=== PATIENT | female | born 1945 | race Two or more races ===

== ENCOUNTER 2018-07-16 02:56 | Emergency (ER) | END 2018-07-16 09:09 | disposition home or self-care (01) ==

== ENCOUNTER 2019-03-22 17:21 | Emergency (ER) | payer MEDICARE, OTHER ==
[~2019-03-22] VITALS: Ht 157.5 cm; Wt 85.0 kg
[~2019-03-22 17:21] MED LIST: ASPI-535 PO; ATOR20TA38 PO; ERGO500013 PO; FURO40TA4 PO; GABA100C14 PO; HYDR-3672 PO; HYDR25TA6 PO; IRBE300T15 PO; LORA0.5T PO; LOSA100T15 PO; MELO7.5T38 PO; METO2.5T PO; OMEP20CA16 PO; POTA8CAP PO; PROP40TA4 PO; PSEU30TA38 PO; UMEC1DIS INHALATION
[2019-03-22 17:30] VITALS: Ht 157.5 cm; Wt 85.0 kg
--- NOTE | 2019-03-22 17:36 | ERD ---
ER Documentation Chief Complaint Chief Complaint LLQ AP HPI The patient is a 74-year-old female, presenting to the ER because of left lower quadrant abdominal pain that began around 4:30 PM after voiding, complains of dysuria, denies similar symptoms previously, denies fever, chills, neck pain, chest pain, dyspnea, diarrhea, c/o constipation. She does not smoke nor drink Past medical history: Hypertension, dyslipidemia, anxiety, history of CHF Past surgical history: Hysterectomy, cholecystectomy ROS All systems reviewed and are negative except as per history of present illness. Medications Home Meds Active Scripts Polyethylene Glycol* (Miralax*) 17 Gm Powd.pack, 17 GM PO DAILY, #30 PACKET Prov:ELISEO ASTUDILLO MD 03/22/19 Reported Medications Sertraline Hcl* (Sertraline Hcl*) 25 Mg Tablet, 25 MG PO DAILY, #30 TAB 03/22/19 Metoprolol Succinate* (Toprol XL*) 50 Mg Tab.er.24h, 50 MG PO DAILY, #30 TAB 03/22/19 Lorazepam* (Lorazepam*) 0.5 Mg Tablet, 0.5 MG PO BID PRN for ANXIETY, TAB 03/22/19 Gabapentin* (Gabapentin*) 100 Mg Capsule, 100 MG PO BID, #90 CAP 03/22/19 Aspirin* (Aspirin* EC) 81 Mg Tablet.dr, 81 MG PO DAILY, TAB 03/22/19 Atorvastatin Calcium* (Atorvastatin Calcium*) 20 Mg Tablet, 20 MG PO QHS, #30 TAB 03/22/19 Meloxicam* (Mobic*) 7.5 Mg Tab, 7.5 MG PO DAILY, #30 TAB 03/22/19 Sennosides* (Senna Lax*) 8.6 Mg Tablet, 1 TAB PO DAILY, TAB 03/22/19 Umeclidinium Brm-Vilanterol Tr (Anoro Ellipta) 62.5-25 Mcg Disk.w.dev, 1 EACH INHALATION DAILY, #1 DISK 03/22/19 Gpmlbdjapg-Iswklnogny-VNQI (Tribenzor) 40-10-12.5 Mg Tablet, 1 TAB PO DAILY, TAB 03/22/19 Furosemide* (Furosemide*) 40 Mg Tablet, 40 MG PO BID, TAB 03/22/19 Discontinued Reported Medications Aspirin Ec (Aspir 81) 81 Mg Tablet.dr, 81 MG PO DAILY, #30 TAB 07/16/18 Umeclidinium Brm-Vilanterol Tr (Anoro Ellipta) 62.5-25 Mcg Disk.w.dev, 1 EACH INHALATION DAILY, #1 DISK 07/16/18 Losartan Potassium* (Losartan Potassium*) 100 Mg Tablet, 100 MG PO DAILY, TAB 07/16/18 Omeprazole* (Omeprazole*) 20 Mg Capsule.dr, 20 MG PO DAILY, #30 CAP 07/16/18 Atorvastatin Calcium* (Atorvastatin Calcium*) 20 Mg Tablet, 20 MG PO QHS, #30 TAB 07/16/18 Meloxicam* (Meloxicam*) 7.5 Mg Tablet, 7.5 MG PO DAILY, #30 TAB 07/16/18 Gabapentin* (Gabapentin*) 100 Mg Capsule, 100 MG PO BID, #90 CAP 07/16/18 Metolazone* (Metolazone*) 2.5 Mg Tablet, 2.5 MG PO DAILY, TAB 07/16/18 Hydrochlorothiazide* (Hydrochlorothiazide*) 25 Mg Tab, 25 MG PO DAILY, #30 TAB 07/16/18 Propranolol Hcl* (Propranolol Hcl*) 40 Mg Tablet, 40 MG PO QID, TAB 07/16/18 Lorazepam* (Lorazepam*) 0.5 Mg Tablet, 0.5 MG PO HS, TAB 07/16/18 Ergocalciferol (Vitamin D2) (VITAMIN D2) 50,000 Unit Capsule, 67281 UNIT PO, CAP 07/16/18 Hydralazine Hcl* (Apresoline*) 50 Mg Tab, 50 MG PO Q6, #120 TAB 07/16/18 Pseudoephedrine Hcl* (Pseudoephedrine Hcl*) 30 Mg Tablet, 30 MG PO Q6 PRN for CONGESTION, TAB 07/16/18 Potassium Chloride* (Potassium Chloride*) 8 Meq Capsule.er, 8 MEQ PO DAILY, CAP 07/16/18 Irbesartan* (Irbesartan*) 300 Mg Tablet, 300 MG PO DAILY, TAB 07/16/18 Furosemide* (Furosemide*) 40 Mg Tablet, 40 MG PO BID, TAB 07/16/18 Allergies Allergies: Coded Allergies: No Known Allergy (Unverified , 03/22/19) PMhx/Soc History of Surgery: Yes (HYSTERECTOMY ) Hx Neurological Disorder: No Hx Respiratory Disorders: No Hx Cardiac Disorders: Yes (HTN,CHF) Hx Psychiatric Problems: Yes (ANXIETY ) Hx Miscellaneous Medical Probl: No Hx Alcohol Use: No Hx Substance Use: No Hx Tobacco Use: No Physical Exam Vitals Vital Signs Date Temp Pulse Resp B/P (MAP) Pulse Ox O2 O2 Flow FiO2 Time Delivery Rate 03/22/19 70 16 144/64 98 Room Air 22:17 (90) 03/22/19 98.4 72 20 174/76 97 Room Air 21:04 (108) 03/22/19 69 20 165/75 97 Room Air 18:35 (105) 03/22/19 98.3 76 22 172/108 100 17:30 (129) Physical Exam Const: No acute distress. Head: Atraumatic. Eyes: Normal Conjunctiva. ENT: Normal External Ears, Nose and Mouth. Neck: Full range of motion. No meningismus. Resp: Clear to auscultation bilaterally. Cardio: Regular rate and rhythm. Abd: Soft, non distended, normal bowel sounds, minimal left lower quadrant tenderness, no rigidity/rebound/CVA tenderness Skin: No petechiae or rashes. Back: No midline or flank tenderness. Ext: No cyanosis, or edema. Neur: Awake and alert. No focal deficit Psych: Normal Mood and Affect. Result Diagram: 03/22/19174803/22/191748 Results 24 hrs Laboratory Tests Test 03/22/19 17:49 03/22/19 17:54 White Blood Count 8.1 10^3/ul Red Blood Count 3.82 10^6/ul Hemoglobin 12.1 g/dl Hematocrit 37.0 % Mean Corpuscular Volume 96.9 fl Mean Corpuscular Hemoglobin 31.7 pg Mean Corpuscular Hemoglobin Concent 32.7 g/dl Red Cell Distribution Width 13.5 % Platelet Count 234 10^3/UL Mean Platelet Volume 11.0 fl Immature Granulocytes % 0.100 % Neutrophils % 50.8 % Lymphocytes % 38.1 % Monocytes % 10.0 % Eosinophils % 0.6 % Basophils % 0.4 % Nucleated Red Blood Cells % 0.0 /100WBC Immature Granulocytes # 0.010 10^3/ul Neutrophils # 4.1 10^3/ul Lymphocytes # 3.1 10^3/ul Monocytes # 0.8 10^3/ul Eosinophils # 0.1 10^3/ul Basophils # 0.0 10^3/ul Nucleated Red Blood Cells # 0.0 10^3/ul Sodium Level 140 mmol/L Potassium Level 4.1 mmol/L Chloride Level 105 mmol/L Carbon Dioxide Level 26 mmol/L Anion Gap 9 Blood Urea Nitrogen 18 mg/dl Creatinine 0.75 mg/dl Est Glomerular Filtrat Rate mL/min mL/min Glucose Level 93 mg/dl Calcium Level 9.3 mg/dl Total Bilirubin 0.5 mg/dl Direct Bilirubin 0.00 mg/dl Indirect Bilirubin 0.5 mg/dl Aspartate Amino Transf (AST/SGOT) 23 IU/L Alanine Aminotransferase (ALT/SGPT) 21 IU/L Alkaline Phosphatase 71 IU/L Total Protein 7.4 g/dl Albumin 4.2 g/dl Globulin 3.20 g/dl Albumin/Globulin Ratio 1.31 Lipase 58 U/L Bedside Urine pH (LAB) 7.0 Bedside Urine Protein (LAB) Negative Bedside Urine Glucose (UA) Negative Bedside Urine Ketones (LAB) Negative Bedside Urine Blood Negative Bedside Urine Nitrite (LAB) Negative Bedside Urine Leukocyte Esterase (L Negative Current Medications Medications Dose Sig/Breanne Start Time Status Last (Trade) Ordered Route PRN Stop Time Admin Dose Reason Admin Ketorolac 15 mg ONCE STAT 03/22/19 DC 03/22/19 Tromethamine IV 17:42 03/22/19 18:13 (Toradol) 17:43 Morphine 2 mg ONCE STAT 03/22/19 DC 03/22/19 Sulfate IV 19:32 03/22/19 19:52 (morphine) 19:39 Ondansetron 4 mg ONCE STAT 03/22/19 DC 03/22/19 HCl (Zofran IV 19:32 03/22/19 19:51 Inj) 19:39 Procedures/[place] [address] Radiology Main Line: [phone] DIAGNOSTIC IMAGING REPORT Patient: FILIPE SMITH : 1945 Age: 74 Sex: F MR #: [id number] DOS: 03/22/19 1742 Ordering MD: ELISEO ASTUDILLO MD Location: E/R Room/Bed: PROCEDURE: CT Abdomen and Pelvis without contrast. CLINICAL INDICATION: Abdominal pain. TECHNIQUE: Unenhanced CT scan of the abdomen and pelvis was performed on a multi-detector high-resolution CT scanner. Coronal and sagittal reformatted images were obtained from the axial source images. Images were reviewed on a high-resolution PACS workstation. The total exam CTDI equals 18.9 mGy and the total exam DLP equals 1048.3 mGy-cm. DICOM images are available. One or more of the following dose reduction techniques were utilized: 1.) Automated exposure control 2.) Adjustment of the mA +/- kV according to patient's size 3.) Use of iterative reconstruction technique. COMPARISON: CTA chest 11/13/2018. FINDINGS: Evaluation of the soft tissues and viscera is limited in the absence of contrast. Partially visualized mild bibasilar pulmonary subsegmental atelectasis. Stable mild cardiomegaly without identifiable significant pericardial effusion. Mild systemic atherosclerotic calcifications without abdominal aortoiliac aneurysmal dilatation. No pathologic lymphadenopathy identified by imaging criteria. Liver demonstrates normal size and contour, without identifiable focal mass lesion in the absence of intravenous contrast. Redemonstrated chronic post cholecystectomy changes with expected mild prominence of the biliary ductal system, common bile duct measuring up to 8 mm (axial image 56, coronal image 42). Fatty pancreatic atrophy asymmetrically involves the head and uncinate process, without identifiable peripancreatic inflammatory change. Spleen is nor mal in size, with a 12 mm hilar splenule. Adrenal glands appear normal. Small sliding hiatal hernia involving the gastric cardia. Bowel is unobstructed without free air or free fluid. Subtle mistiness of the mesenteries in the left abdomen, in the presence of scattered slightly prominent lymph nodes, possibly reflecting mesenteric lymphadenitis or reactive changes related to enteritis (axial image 66, coronal image 31, sagittal image 84). There is some feculent material in the left lower quadrant distal small bowel which may reflect poor peristalsis (axial image 113). Appendix appears normal. Numerous diffusely scattered colonic diverticuli without evidence of acute diverticulitis. Unenhanced kidneys demonstrate simple - appearing cysts measuring up to 4.0 cm in the right upper pole (axial image 69, coronal image 68), 2.0 cm in the right lower pole (axial image 77, coronal image 44), and 1.5 cm in the left upper pole (axial image 48, coronal image 55). The right kidney is slightly ptotic. No nephrolithiasis nor hydronephrosis. The ureters run unobstructed to a nearly empty urinary bladder which is not well evaluated on today's exam. The patient is status post hysterectomy with postsurgical changes of the vaginal cuff. Bilateral ovaries are normal in size, demonstrating small scattered calcifications. Osseous structures are intact with diffuse bony demineralization, mild S-shaped thoracolumbar scoliosis, mild chronic 5 mm right lateral listhesis of L3 on L4 and left lateral listhesis of L4 on L5, mature bony fusion through the L5 - S1 end plates, chronic T11, L2 and L3 superior end plate Schmorl's nodes, and multilevel spondylotic changes which appear most pronounced at L4-5 where there is vacuum disc effect and bulging contributing to probable mild canal and bilat eral neural foraminal stenosis, suboptimally evaluated by CT. Tiny fatty ventral abdominal hernia in the parasagittal left lower quadrant (axial image 133, coronal image 25, sagittal image 74). Tiny fatty umbilical and infraumbilical osmar-incisional hernias (axial image 104, coronal image 15, sagittal image 60). Calcified injection granulomata in the bilateral buttocks. IMPRESSION: 1. Subtle mistiness of the mesenteries in the left abdomen, in the presence of scattered slightly prominent lymph nodes, possibly reflecting mesenteric lymphadenitis or reactive changes related to enteritis, with feculent material in the left lower quadrant distal small bowel which may reflect poor peristalsis . 2. Severe diffuse colonic diverticulosis without evidence of acute diverticulitis. The bowel is unobstructed without evidence of perforation or abscess, and the appendix appears normal. 3. Small sliding hiatal hernia. 4. No nephrolithiasis nor hydronephrosis. Simple - appearing bilateral renal cys ts. 5. Stable mild cardiomegaly. 6. Atherosclerosis. 7. Mild thoracolumbar scoliosis with mild chronic L3-4 and L4-5 degenerative listheses. Multilevel spondylotic changes appear most pronounced at L4-5 where there is probable mild canal and bilateral neural foraminal stenosis. This can be better evaluated by MRI L-spine if clinically warranted. RPTAT: HSAN Karl Castrejon, Physician Date Time Electronically viewed and signed by Karl Castrejon Physician on 03/22/2019 18:47 xN/ CC: ELISEO ASTUDILLO MD [phone] MEDICAL MAKING DECISION: The patient is a 74-year-old female, presenting with acute abdominal pain of unclear etiology, was treated with Toradol 15 mg IV, morphine 2 mg IV for pain and Zofran 4 mg IV for nausea with good response. On multiple reevaluation, she felt well, repeat abdominal exams were unremarkable, is stable for outpatient follow-up The differential diagnoses considered include but are not limited to choledocholithiasis, cholangitis, pancreatitis, hepatitis, gastritis, peptic ulcer disease, gastric ulcer, appendicitis, cystitis, diverticulitis, partial small bowel obstruction. Departure Diagnosis: Primary Impression: Abdominal pain Additional Impression: Constipation Condition: Good Comments She was discharged with MiraLAX I discussed the findings with the patient. I advised the patient to follow-up with the primary physician in the morning and return if any concern. Disclaimer: Inadvertent spelling and grammatical errors are likely due to EHR/dictation software use and do not reflect on the overall quality of patient care. Also, please note that the electronic time recorded on this note does not necessarily reflect the actual time of the patient encounter. ELISEO ASTUDILLO MD Mar 22, 2019 17:36
[2019-03-22] MEDS ORDERED: KETOROLAC 15 MG INJ IV STA (17:42)
[2019-03-22] MEDS ORDERED: UMEC1DIS INHALATION (17:45)
[2019-03-22] MEDS ORDERED: OLME1TAB35 PO (17:45)
[2019-03-22] MEDS ORDERED: FURO40TA4 PO (17:45)
[2019-03-22] MEDS ORDERED: MELO-174 PO (17:46)
[2019-03-22] MEDS ORDERED: ATOR20TA38 PO (17:46)
[2019-03-22] MEDS ORDERED: SENN-120 PO (17:46)
[2019-03-22] MEDS ORDERED: GABA100C14 PO (17:47)
[2019-03-22] MEDS ORDERED: ASPI-817 PO (17:47)
[2019-03-22] MEDS ORDERED: LORA0.5T PO (17:47)
[2019-03-22] MEDS ORDERED: METO-319 PO (17:48)
[2019-03-22] MEDS ORDERED: SERT25TA83 PO (17:48)
[2019-03-22] MEDS ORDERED: morphine 2 MG INJ IV STA (19:32)
[2019-03-22] MEDS ORDERED: ONDANSETRON 4 MG INJ IV STA (19:32)
[2019-03-22] MEDS ORDERED: POLY17PO6 PO (22:12)
[2019-03-22 22:17] VITALS: BP 144/64; PULSE 70; RESP 16
== END 2019-03-22 22:20 | disposition home or self-care (01) ==
LOC: E/R 17:21
DX: R10.32 Left lower quadrant pain (principal); K59.00 Constipation, unspecified; I11.0 Hypertensive heart disease with heart failure; I50.9 Heart failure, unspecified; Z79.82 Long term (current) use of aspirin
CPT/HCPCS: 36415; 74176; 80053; 81003; 83690; 85025; 96374; 96375; 99285; J1885; J2270; J2405